=== PATIENT | female | born 1980 | race Caucasian/White ===

== ENCOUNTER 2018-01-30 14:57 | Emergency (ER) | payer MEDICARE, OTHER ==
[~2018-01-30] VITALS: Ht 177.8 cm; Wt 68.0 kg
[~2018-01-30 14:57] MED LIST: BACL20TA PO; HYDR-3972 PO; MELO15TA13 PO; ONDA4TAB6 PO; POTA20TA19 PO; TRAM50TA2 PO
[2018-01-30 15:08] VITALS: BP 96/65
[2018-01-30 15:29] LABS: CLARITY,URINE CLEAR (Clear); COLOR,URINE YELLOW (Yellow); GLUCOSE, URINE NEGATIVE (Neg); KETONES,URINE NEGATIVE (Neg); LEUKOCYTE ESTERASE ,URINE NEGATIVE (Neg); NITRITES, URINE NEGATIVE (Neg); OCCULT BLOOD,URINE TRACE-INTACT (Neg); PROTEIN,URINE NEGATIVE (Neg); URINE HCG NEGATIVE (NEG); UROBILINOGEN,URINE 0.2 E.U/dL (0.2-1.0)
[2018-01-30 15:31] LABS: UA COLLECTION TYPE CLN CATCH MIDSTREAM
[2018-01-30 15:38] LABS: BACTERIA,URINE NONE SEEN /HPF (Neg); MUCUS STRANDS NONE SEEN /LPF (Neg); RBC,URINE 0-2 /HPF (0-2); SQUAMOUS EPITHELIAL CELL,UR MODERATE /LPF (FEW); WBC,URINE NONE SEEN /HPF (0-4)
[2018-01-30] MEDS ORDERED: CLIN150C99 PO (15:44)
[2018-01-30] MEDS ORDERED: metroNIDAZOLE 500mg tablet PO ONE (15:55)
[2018-01-30] MEDS ORDERED: CefTRIAXone 250MG IM Kit w/LIDOcaine IM ONE (15:55)
[2018-01-30] MEDS ORDERED: azithromycin 250mg tablet PO ONE (15:55)
[2018-01-30] MEDS ORDERED: ketorolac trometh inj. 60 MG/2 ML VIAL IM ONE (15:55)
[2018-01-30] MEDS ORDERED: TAMS0.4C32 PO (16:02)
[2018-01-30] MEDS ORDERED: ketorolac PO (16:02)
== END 2018-01-30 16:29 | disposition home or self-care (01) ==
LOC: ER 14:58
DX: N20.0 Calculus of kidney (principal); G89.29 Other chronic pain; Z87.442 Personal history of urinary calculi; Z72.51 High risk heterosexual behavior; Z98.51 Tubal ligation status; Z98.890 Other specified postprocedural states; Z79.899 Other long term (current) drug therapy
CPT/HCPCS: 81001; 81025; 96372; 99284; J0696; J1885; J3490

== ENCOUNTER 2018-07-07 13:06 | Emergency (ER) | payer MEDICARE ==
[~2018-07-07] VITALS: Ht 175.3 cm; Wt 66.0 kg
[~2018-07-07 13:06] MED LIST changes: +CLIN150C99 PO; +TAMS0.4C32 PO; +ketorolac PO
[2018-07-07 13:21] VITALS: BP 111/73
[2018-07-07] MEDS ORDERED: ketorolac trometh inj. 60 MG/2 ML VIAL IM ONE (15:05)
== END 2018-07-07 15:40 | disposition home or self-care (01) ==
LOC: ER 13:07
DX: J20.9 Acute bronchitis, unspecified (principal); G89.29 Other chronic pain; Z98.890 Other specified postprocedural states; Z98.51 Tubal ligation status; Z87.891 Personal history of nicotine dependence; Z79.899 Other long term (current) drug therapy
CPT/HCPCS: 71046; 96372; 99283; J1885

== ENCOUNTER 2018-12-15 17:26 | Emergency (ER) | payer MEDICARE ==
[~2018-12-15] VITALS: Ht 175.3 cm; Wt 75.0 kg
[2018-12-15 18:29] LABS: URINE HCG NEGATIVE (NEG)
[2018-12-15 18:35] LABS: CLARITY,URINE CLOUDY (Clear); COLOR,URINE YELLOW (Yellow); GLUCOSE, URINE NEGATIVE (Neg); KETONES,URINE NEGATIVE (Neg); LEUKOCYTE ESTERASE ,URINE LARGE (Neg); NITRITES, URINE NEGATIVE (Neg); OCCULT BLOOD,URINE TRACE-INTACT (Neg); PROTEIN,URINE TRACE mg/dl (Neg)
[2018-12-15 18:36] LABS: UA COLLECTION TYPE CLN CATCH MIDSTREAM
[2018-12-15] MEDS ORDERED: CefTRIAXone 1000mg IM Kit (w/lidocaine diluent) IM ONE (18:55)
[2018-12-15] MEDS ORDERED: metroNIDAZOLE 500mg tablet PO ONE (18:55)
[2018-12-15] MEDS ORDERED: azithromycin 250mg tablet PO ONE (18:55)
[2018-12-15 18:58] LABS: WBC,URINE 30-50 /HPF (0-4)
[2018-12-15 18:59] LABS: BACTERIA,URINE 2+ /HPF (Neg); RBC,URINE 0-2 /HPF (0-2); SQUAMOUS EPITHELIAL CELL,UR MODERATE /LPF (FEW)
[2018-12-15] MEDS ORDERED: CefTRIAXone 250MG IM Kit w/LIDOcaine IM ONE (19:05)
[2018-12-15] MEDS ORDERED: METR500T PO (19:46)
[2018-12-15 19:53] VITALS: BP 118/65
== END 2018-12-15 19:57 | disposition home or self-care (01) ==
LOC: ER 17:27
DX: A59.9 Trichomoniasis, unspecified (principal); G89.29 Other chronic pain; Z98.51 Tubal ligation status; Z98.890 Other specified postprocedural states; Z87.442 Personal history of urinary calculi; Z79.2 Long term (current) use of antibiotics; Z79.899 Other long term (current) drug therapy
CPT/HCPCS: 36415; 81001; 81025; 87088; 87210; 87491; 87591; 96372; 99283; J0696; J3490

== ENCOUNTER 2019-01-20 20:26 | Emergency (ER) | payer MEDICARE, MEDICAID ==
[~2019-01-20] VITALS: Ht 177.8 cm; Wt 59.0 kg
[2019-01-20] MEDS ORDERED: proparacaine 0.5% ophthalmic drops 15ml EACHEYE ONE (20:50)
[2019-01-20] MEDS ORDERED: iohexol 300mg/ml 100ml inj. ONE (21:11)
[2019-01-20] MEDS ORDERED: SULF1TAB49 PO (22:18)
[2019-01-20] MEDS ORDERED: sulfamethoxazole/trimethoprim DS (800/160mg) tablet PO ONE (22:20)
[2019-01-20] MEDS ORDERED: ciprofloxacin 0.3% 2.5ml ophthalmic solution LEFTEYE ONE (22:20)
[2019-01-20] MEDS ORDERED: LORA-268 PO (22:29)
[2019-01-20 22:58] VITALS: BP 98/59
== END 2019-01-20 23:00 | disposition home or self-care (01) ==
LOC: ER 20:27
DX: S05.02XA Injury of conjunctiva and corneal abrasion without foreign body, left eye, initial encounter (principal); L03.213 Periorbital cellulitis; G89.29 Other chronic pain; Z87.442 Personal history of urinary calculi; Z98.51 Tubal ligation status; Z98.890 Other specified postprocedural states; Z79.899 Other long term (current) drug therapy; X58.XXXA Exposure to other specified factors, initial encounter; Y93.89 Activity, other specified; Y92.89 Other specified places as the place of occurrence of the external cause; Y99.9 Unspecified external cause status
CPT/HCPCS: 70487; 99284; Q9967

== ENCOUNTER 2019-11-14 16:28 | Emergency (ER) | payer MEDICARE, MEDICAID ==
[~2019-11-14] VITALS: Ht 177.8 cm; Wt 60.0 kg
[~2019-11-14 16:28] MED LIST changes: +LORA-268 PO
[2019-11-14 16:38] VITALS: BP 141/84
--- NOTE | 2019-11-14 17:03 | NUR ---
ONE [address] CALLED, [facility] WILL BE COMING IN [place]
--- NOTE | 2019-11-14 19:00 | NUR ---
SO Alfredo DELGADO
--- NOTE | 2019-11-14 19:01 | NUR ---
PT PHONE TO CALL IF WE GET SART [phone]
== END 2019-11-14 19:12 | disposition home or self-care (01) ==
LOC: ER 16:29 → EEVIPCON 16:29 → ER 19:12
DX: F15.90 Other stimulant use, unspecified, uncomplicated (principal); G89.29 Other chronic pain; F17.200 Nicotine dependence, unspecified, uncomplicated; Z98.51 Tubal ligation status; Z00.8 Encounter for other general examination; Z79.2 Long term (current) use of antibiotics; Z79.899 Other long term (current) drug therapy
CPT/HCPCS: 99281

== ENCOUNTER 2019-11-15 12:42 | Emergency (ER) | payer MEDICARE, MEDICAID ==
[~2019-11-15] VITALS: Ht 175.3 cm; Wt 60.0 kg
[2019-11-15 12:56] VITALS: BP 125/81
--- NOTE | 2019-11-15 13:00 | NUR ---
MIKIE CALLED AND REQUESTED THAT SO OFFICER THAT INTERVIEWED PT YESTERDAY CALL REGARDING APPROVAL OF SART KIT.
--- NOTE | 2019-11-15 14:15 | NUR ---
SO CALLED AND NOTIFIED THAT SART KIT WAS NOT APPROVED DUE TO PRIOR CIRCUMSTANCES. PT NOTIFIED AND UNDERSTOOD. [facility] REP IS WITH PT AND CONTINUES TO OFFER SUPPORT AND INTERMEDIATE.
== END 2019-11-15 15:15 | disposition home or self-care (01) ==
LOC: ER 12:43 → EEVIPCON 12:43 → ER 15:15
DX: T76.21XA Adult sexual abuse, suspected, initial encounter (principal); G89.29 Other chronic pain; F17.200 Nicotine dependence, unspecified, uncomplicated; F15.90 Other stimulant use, unspecified, uncomplicated; Z98.51 Tubal ligation status; Z98.890 Other specified postprocedural states
CPT/HCPCS: 99281

== ENCOUNTER 2019-12-20 18:14 | Emergency (ER) | payer MEDICARE, MEDICAID ==
[~2019-12-20] VITALS: Ht 175.3 cm; Wt 66.8 kg
[2019-12-20 19:00] LABS: BASOPHILS % (AUTO) 0.6 % (0-1); EOSINOPHILS # (AUTO) 0.2 X10'3 (0-0.9); HEMATOCRIT 40.7 % (35.0-45.0); HEMOGLOBIN 13.5 g/dl (12.0-16.0); LYMPHOCYTES % (AUTO) 36.9 % (21-51); MEAN CORPUSCULAR HEMOGLOBIN 31.4 PG (27.0-31.0); MEAN CORPUSCULAR HGB CONC 33.1 g/dL (33.0-36.5); MEAN CORPUSCULAR VOLUME 94.7 FL (78-98); MONOCYTES # (AUTO) 0.5 X10'3 (0-0.9); MONOCYTES % (AUTO) 8.7 % (2-12); NEUTROPHILS # (AUTO) 2.8 X10'3 (1.8-7.7); NEUTROPHILS % (AUTO) 50.8 % (42-75); PLATELET COUNT 232 X10'3 (140-440); RED CELL DISTRIBUTION WIDTH 13.4 % (11.5-14.5); WHITE BLOOD COUNT 5.5 X10'3 (4.5-11.0)
[2019-12-20 19:18] LABS: ALANINE AMINOTRANSFERASE 18 U/L (12-78); ALBUMIN 4.3 G/DL (3.4-5.0); ALBUMIN/GLOBULIN RATIO 1.4 (1.1-1.5); ALKALINE PHOSPHATASE 50 IU/L (46-116); ANION GAP 6 (8-16); ASPARTATE AMINO TRANSFERASE 18 U/L (10-37); BILIRUBIN,TOTAL 0.8 MG/DL (0.1-1.0); BLOOD UREA NITROGEN 16 MG/DL (7-18); CALCIUM 8.4 MG/DL (8.5-10.1); CHLORIDE 104 MMOL/L (99-107); CREATININE 0.94 MG/DL (0.40-0.90); GLUCOSE 80 MG/DL (70-104); LIPASE 197 U/L (73-393); POTASSIUM 4.2 MMOL/L (3.5-5.1); SODIUM 137 MMOL/L (135-145); TOTAL PROTEIN 7.3 G/DL (6.4-8.2); eGFR 67 ML/MIN
[2019-12-20 19:18] LABS: URINE HCG NEGATIVE (NEG)
[2019-12-20 19:20] LABS: CLARITY,URINE CLEAR (Clear); COLOR,URINE YELLOW (Yellow); GLUCOSE, URINE NEGATIVE (Neg); KETONES,URINE NEGATIVE (Neg); LEUKOCYTE ESTERASE ,URINE NEGATIVE (Neg); NITRITES, URINE NEGATIVE (Neg); OCCULT BLOOD,URINE NEGATIVE (Neg); PROTEIN,URINE TRACE mg/dl (Neg)
[2019-12-20 19:22] LABS: UA COLLECTION TYPE CLN CATCH MIDSTREAM
[2019-12-20 19:26] LABS: SQUAMOUS EPITHELIAL CELL,UR MODERATE /LPF (FEW)
[2019-12-20 19:27] LABS: BACTERIA,URINE 1+ /HPF (Neg); WBC,URINE 0-4 /HPF (0-4)
[2019-12-20 19:28] LABS: RBC,URINE NONE SEEN /HPF (0-2)
[2019-12-20] MEDS ORDERED: normal saline 1000ML IV soln IVB ONE (21:00)
[2019-12-20] MEDS ORDERED: ketorolac trometh. 30mg/ml inj. IV ONE (21:00)
[2019-12-20] MEDS ORDERED: NAPR-56 PO (22:32)
[2019-12-20] MEDS ORDERED: morphine 4 MG/ML inj SYRINge IV ONE (22:35)
[2019-12-20 22:49] VITALS: BP 129/82
== END 2019-12-20 22:52 | disposition home or self-care (01) ==
LOC: ER 18:15
DX: N23 Unspecified renal colic (principal); R10.9 Unspecified abdominal pain; G89.29 Other chronic pain; F15.90 Other stimulant use, unspecified, uncomplicated; Z98.51 Tubal ligation status; Z98.890 Other specified postprocedural states; Z79.2 Long term (current) use of antibiotics; Z79.899 Other long term (current) drug therapy
CPT/HCPCS: 36415; 74176; 80053; 81001; 81025; 83690; 85025; 96361; 96374; 96375; 99284; J1885; J2270; J7030

== ENCOUNTER 2020-01-14 19:48 | Emergency (ER) | payer MEDICARE, MEDICAID ==
[~2020-01-14] VITALS: Ht 175.3 cm; Wt 66.9 kg
[~2020-01-14 19:48] MED LIST changes: +NAPR-56 PO
[2020-01-14 19:57] VITALS: BP 122/65
[2020-01-14 20:23] LABS: URINE HCG NEGATIVE (NEG)
[2020-01-14] MEDS ORDERED: ketorolac tromethamine 15mg/ml inj. IV ONE (20:45)
[2020-01-14] MEDS ORDERED: normal saline 1000ml 1,000 ML IV ONE (20:45)
[2020-01-14 20:57] LABS: CLARITY,URINE CLEAR (Clear); COLOR,URINE YELLOW (Yellow); GLUCOSE, URINE NEGATIVE (Neg); KETONES,URINE NEGATIVE (Neg); LEUKOCYTE ESTERASE ,URINE NEGATIVE (Neg); NITRITES, URINE NEGATIVE (Neg); OCCULT BLOOD,URINE TRACE-INTACT (Neg); PROTEIN,URINE NEGATIVE (Neg)
[2020-01-14] MEDS ORDERED: iohexol 300mg/ml 100ml inj. ONE (20:58)
[2020-01-14 21:08] LABS: UA COLLECTION TYPE CLN CATCH MIDSTREAM
[2020-01-14 21:36] LABS: BASOPHILS % (AUTO) 0.3 % (0-1); EOSINOPHILS # (AUTO) 0.2 X10'3 (0-0.9); HEMATOCRIT 37.8 % (35.0-45.0); HEMOGLOBIN 12.6 g/dl (12.0-16.0); LYMPHOCYTES # (AUTO) 2.7 X10'3 (1.1-4.8); LYMPHOCYTES % (AUTO) 39.4 % (21-51); MEAN CORPUSCULAR HEMOGLOBIN 31.4 PG (27.0-31.0); MEAN CORPUSCULAR HGB CONC 33.2 g/dL (33.0-36.5); MEAN CORPUSCULAR VOLUME 94.4 FL (78-98); MEAN PLATELET VOLUME 7.5 FL (7.4-10.4); MONOCYTES # (AUTO) 0.7 X10'3 (0-0.9); MONOCYTES % (AUTO) 10.8 % (2-12); NEUTROPHILS # (AUTO) 3.2 X10'3 (1.8-7.7); NEUTROPHILS % (AUTO) 46.5 % (42-75); PLATELET COUNT 219 X10'3 (140-440); RED CELL DISTRIBUTION WIDTH 12.7 % (11.5-14.5); WHITE BLOOD COUNT 6.9 X10'3 (4.5-11.0)
[2020-01-14 21:39] LABS: ALANINE AMINOTRANSFERASE 17 U/L (12-78); ALBUMIN 3.9 G/DL (3.4-5.0); ALBUMIN/GLOBULIN RATIO 1.4 (1.1-1.5); ALKALINE PHOSPHATASE 52 IU/L (46-116); ANION GAP 7 (8-16); ASPARTATE AMINO TRANSFERASE 16 U/L (10-37); BILIRUBIN,TOTAL 0.5 MG/DL (0.1-1.0); BLOOD UREA NITROGEN 16 MG/DL (7-18); BUN/CREATININE RATIO 15.4 (6.6-38.0); CALCIUM 8.6 MG/DL (8.5-10.1); CHLORIDE 105 MMOL/L (99-107); CREATININE 1.04 MG/DL (0.40-0.90); GLUCOSE 88 MG/DL (70-104); LIPASE 206 U/L (73-393); POTASSIUM 4.3 MMOL/L (3.5-5.1); SODIUM 139 MMOL/L (135-145); TOTAL CARBON DIOXIDE 27.3 MMOL/L (24-32); TOTAL PROTEIN 6.6 G/DL (6.4-8.2); eGFR 60 ML/MIN
[2020-01-14 22:17] LABS: BACTERIA,URINE FEW /HPF (Neg); WBC,URINE 0-4 /HPF (0-4)
[2020-01-14 22:18] LABS: MUCUS STRANDS FEW /LPF (Neg); SQUAMOUS EPITHELIAL CELL,UR FEW /LPF (FEW)
[2020-01-14 22:19] LABS: AMORPHOUS PHOSPHATES 1+
[2020-01-14] MEDS ORDERED: oxyCODONE/APAP 10/325mg tablet PO ONE (22:30)
== END 2020-01-14 23:35 | disposition home or self-care (01) ==
LOC: ER 19:48
DX: R10.31 Right lower quadrant pain (principal); R31.9 Hematuria, unspecified; M54.2 Cervicalgia; G89.29 Other chronic pain; F31.9 Bipolar disorder, unspecified; F15.90 Other stimulant use, unspecified, uncomplicated; Z98.51 Tubal ligation status; Z98.890 Other specified postprocedural states; Z79.2 Long term (current) use of antibiotics; Z79.899 Other long term (current) drug therapy
CPT/HCPCS: 36415; 74177; 80053; 81001; 81025; 83690; 85025; 96361; 96374; 99284; J1885; J7030; Q9967

== ENCOUNTER 2020-09-26 12:55 | Emergency (ER) | payer MEDICARE, MEDICAID ==
[~2020-09-26 12:55] MED LIST changes: -NAPR-56 PO
== END 2020-09-26 14:22 | disposition left against medical advice (07) ==
LOC: ER 12:56
DX: Z53.21 Procedure and treatment not carried out due to patient leaving prior to being seen by health care provider (principal)

== ENCOUNTER 2021-01-17 19:46 | Emergency (ER) | payer MEDICARE, MEDICAID ==
[~2021-01-17] VITALS: Ht 177.8 cm; Wt 68.1 kg
[2021-01-17 20:23] VITALS: BP 128/82
[2021-01-17] MEDS ORDERED: ketorolac tromethamine 15mg/ml inj. IV ONE (23:10)
[2021-01-17] MEDS ORDERED: PENI500T2 PO (23:10)
[2021-01-17] MEDS ORDERED: penicillin V potassium 500mg tablet PO ONE (23:10)
== END 2021-01-17 23:28 | disposition home or self-care (01) ==
LOC: ER 19:46
DX: K08.89 Other specified disorders of teeth and supporting structures (principal); H92.02 Otalgia, left ear; G89.29 Other chronic pain; F31.9 Bipolar disorder, unspecified; F15.90 Other stimulant use, unspecified, uncomplicated; Z87.442 Personal history of urinary calculi; Z98.51 Tubal ligation status; Z98.890 Other specified postprocedural states; Z72.89 Other problems related to lifestyle; Z79.2 Long term (current) use of antibiotics; Z79.899 Other long term (current) drug therapy
CPT/HCPCS: 96374; 99283; J1885

== ENCOUNTER 2024-08-27 09:21 | Outpatient (CLI) | payer MEDICARE, MEDICAID ==
[~2024-08-27 09:21] MED LIST changes: +POTA-207 PO; -POTA20TA19 PO
--- NOTE | 2024-08-27 10:41 | RADIOLOGY REPORT ---
MRI THORACIC SPINE CLINICAL HISTORY: LOW BACK PAIN TECHNIQUE: Multi planar, multi sequence MR images of the thoracic spine without intravenous contrast. COMPARISON: None FINDINGS: The thoracic spinal cord demonstrates normal caliber and signal. The conus terminates at an appropria te level. The vertebral body heights are maintained. The bone marrow signal is appropriate. There is partial visualization of interbody fusion hardware at the C6-C7 level. The sagittal alignment is anatomic. The disc heights appear maintained. There is no significant poste rior thoracic disc herniation. There is no spinal canal or significant neural foraminal stenosis. The paraspinal soft tissues appear within limit.. IMPRESSION: 1. There is no significant thoracic disc herniation. There is no spinal canal or significant foramina l stenosis. HS:Y
--- NOTE | 2024-08-27 14:07 | RADIOLOGY REPORT ---
MRI LUMBAR SPINE CLINICAL HISTORY: SPONDYLOSIS W/O MYELOPATHY OR RADICULOPATHY,LUMBAR REGION TECHNIQUE: Multi planar, multi sequence MR images of the lumbar spine without intravenous contrast. Comparison: None FINDINGS: The conus terminates at an appropriate level and demonstrates normal caliber and signal. The vertebra l bodies demonstrate normal height and marrow signal. There is straightening of the lumbar lordosis. There is early disc desiccation with mild disc space narrowing at L3-L4 and L4-L5. The paraspinal sof t tissues appear within normal limits. At L1-L2 and L2-L3 there is no significant disc herniation. There is no spinal canal or neuroforamina l stenosis. At L3-L4 there is mild disc bulge and facet arthropathy. There is no spinal canal stenosis. There is mild bilateral neural foraminal narrowing. At L4-L5 there is mild disc bulge and bilateral facet arthropathy. There is no spinal canal stenosis. There is mild bilateral neural foraminal narrowing. At L5-S1 there is disc bulge with superimposed 3 mm broad-based left paracentral disc protrusion with associated annular fissure. There is mild facet arthropathy. There is no spinal canal stenosis. T he protruding disc abuts the descending left S1 nerve root without compression. There is no significa nt foraminal stenosis. IMPRESSION: 1. Mild degenerative changes in the lower lumbar spine as described by levels above. 2. There is 3 mm broad-based left paracentral disc protrusion with associated annular fissure at L5-S 1. The protruding disc abuts the descending left S1 nerve root without compression. HS:Y
== END 2024-08-27 23:59 | disposition home or self-care (01) ==
LOC: MRI02 09:21
PROVIDERS: ATTEND Nurse Practitioner Adult Health
DX: M51.17 Intervertebral disc disorders with radiculopathy, lumbosacral region (principal); M47.816 Spondylosis without myelopathy or radiculopathy, lumbar region; M47.27 Other spondylosis with radiculopathy, lumbosacral region; M54.59 Other low back pain; M43.16 Spondylolisthesis, lumbar region
CPT/HCPCS: 72146; 72148